=== PATIENT | female | born 1960 | race Caucasian/White ===

== ENCOUNTER 2023-01-20 15:54 | Observation (INO) | payer BC ==
[2023-01-20] MEDS ORDERED: Sodium Chloride 0.9% 10 ML Syringe FLUSH PRN (16:04)
[2023-01-20 16:35] LABS: CHLORIDE,CL 100 mmol/L (98-107); SODIUM,NA 135 mmol/L (136-145)
[2023-01-20 16:36] LABS: ESTIMATED GFR 104 mL/min (>=60)
[2023-01-20] MEDS ORDERED: Aspirin 81 MG Tab.Chew PO ONE (16:46)
[2023-01-20] MEDS ORDERED: Labetalol 100 MG/20 ML MDV IVPUSH ONE (16:48)
[2023-01-20 16:51] LABS: PTT,PARTIAL THROMBOPLSTIN TIME 25.6 SEC (22.8-31.4)
[2023-01-20 17:19] LABS: HEMOGLOBIN A1C 7.3 % (4.3-5.7)
[2023-01-20] MEDS ORDERED: Ibuprofen 600 MG Tab PO PRN (19:48)
[2023-01-21 07:58] LABS: ANION GAP 11.1 mmol/L (5-15)
[2023-01-21] MEDS ORDERED: Aspirin 81 MG Tab.EC PO SCH (08:00)
== END 2023-01-21 11:45 | disposition home or self-care (01) ==
LOC: KA.ED 15:54 → KA.MS 17:18
PROVIDERS: ADMIT Physician Assistant Medical; ATTEND Nurse Practitioner Family
DX: I16.0 Hypertensive urgency (principal); R20.0 Anesthesia of skin; E11.65 Type 2 diabetes mellitus with hyperglycemia; E66.9 Obesity, unspecified; E78.1 Pure hyperglyceridemia; E55.9 Vitamin D deficiency, unspecified; R91.1 Solitary pulmonary nodule; R94.31 Abnormal electrocardiogram [ECG] [EKG]; N95.0 Postmenopausal bleeding; E78.00 Pure hypercholesterolemia, unspecified; Z87.891 Personal history of nicotine dependence; Z79.899 Other long term (current) drug therapy; Z79.82 Long term (current) use of aspirin; Z68.37 Body mass index [BMI] 37.0-37.9, adult
CPT/HCPCS: 36415; 70450; 71045; 80048; 80053; 83036; 84443; 84484; 85025; 85610; 85730; 93010; 96374; 99223; 99285-25; A9270-GY; G0378; J3490

== ENCOUNTER 2023-03-14 10:56 | Emergency (ER) | payer BC ==
[2023-03-14] MEDS ORDERED: Sodium Chloride 0.9% 1,000 ML IV ONE (10:58)
[2023-03-14] MEDS ORDERED: Sodium Chloride 0.9% 10 ML Syringe FLUSH PRN (10:58)
[2023-03-14] MEDS ORDERED: Ondansetron 4 MG/2 ML SDV IVPUSH ONE ×2 (11:09→11:58)
[2023-03-14] MEDS ORDERED: Ondansetron 4 MG/2 ML SDV ONE (11:10)
[2023-03-14 11:13] LABS: BASOPHILS ABSOLUTE AUTO 0.02 10^3/uL (0.00-0.10); BASOPHILS PERCENT AUTO 0.1 % (0.0-1.0); HEMATOCRIT 40.7 % (37.0-47.0); HEMOGLOBIN 13.8 g/dL (12.0-16.0); IMMATURE GRAN ABSOLUTE AUTO 0.08 10^3/uL (0.00-0.50); IMMATURE GRAN PERCENT AUTO 0.4 % (0.0-5.0); LYMPHOCYTES ABSOLUTE AUTO 0.69 10^3/uL (1.00-4.00); LYMPHOCYTES PERCENT AUTO 3.2 % (20.0-40.0); MEAN CORPUSCULAR HEMOGLOBIN 29.7 pg (27.0-31.0); MEAN CORPUSCULAR HGB CONC 33.9 g/dL (32.0-36.0); MEAN CORPUSCULAR VOLUME 87.5 fL (82.0-92.0); MEAN PLATELET VOLUME 11.6 fL (7.4-10.4); MONOCYTES ABSOLUTE AUTO 0.93 10^3/uL (0.10-0.80); MONOCYTES PERCENT AUTO 4.3 % (2.0-8.0); NEUTROPHILS ABSOLUTE AUTO 20.06 10^3/uL (2.50-7.00); PLATELET COUNT,PLT 199 10^3/uL (150-400); RED BLOOD CELL COUNT 4.65 10^6/uL (3.80-5.50); RED CELL DISTRIBUTION WIDTH 12.7 % (11.5-14.5); WHITE BLOOD CELL COUNT,WBC 21.78 10^3/uL (5.00-10.00)
[2023-03-14 11:25] LABS: ALANINE AMINOTRANSFERASE,ALT 21 U/L (14-63); ALBUMIN 3.89 g/dL (3.40-5.00); ALKALINE PHOSPHATASE 111 U/L (46-116); ANION GAP 13.9 mmol/L (5-15); ASPARTATE AMNIOTRANSFERASE,AST 18 U/L (15-37); BILIRUBIN TOTAL 0.5 mg/dL (0.2-1.0); BLOOD UREA NITROGEN,BUN 14 mg/dL (7-18); CALCIUM 8.9 mg/dL (8.7-10.3); CARBON DIOXIDE,CO2 26.6 mmol/L (21.0-32.0); CHLORIDE,CL 101 mmol/L (98-107); CREATININE 0.54 mg/dL (0.51-1.17); ESTIMATED GFR 103 mL/min (>=60); GLUCOSE RANDOM 281 mg/dL (70-140); LIPASE 73 U/L (73-393); POTASSIUM,K 3.5 mmol/L (3.5-5.1); PROTEIN TOTAL,TP 8.1 g/dL (6.4-8.2); SODIUM,NA 138 mmol/L (136-145)
[2023-03-14] MEDS ORDERED: Iopamidol 755 Mg/ML 100 ML Bottle IV ONE (11:56)
[2023-03-14] MEDS ORDERED: Famotidine 20 MG/2 ML SDV IVPUSH ONE (11:58)
[2023-03-14] MEDS ORDERED: Sodium Chloride 0.9% 50 ML IV SCH (12:00)
[2023-03-14 12:08] LABS: APPEARANCE,URINE CLEAR (CLEAR); BILIRUBIN,URINE NEGATIVE (NEGATIVE); COLOR,URINE YELLOW (YELLOW); GLUCOSE,URINE >=1000 mg/dL (NEGATIVE); KETONES,URINE 40 mg/dL (NEGATIVE); LEUKOCYTE ESTERASE,URINE NEGATIVE (NEGATIVE); NITRITE,URINE NEGATIVE (NEGATIVE); OCCULT BLOOD,URINE TRACE-INTACT (NEGATIVE); PH,URINE 7.5 (5.0-9.0); PROTEIN,URINE 30 mg/dL (NEGATIVE)
[2023-03-14 12:10] LABS: BACTERIA,URINE OCCASIONAL /HPF (NONE TO FEW); EPITHELIAL CELLS,URINE FEW /LPF; RBC,URINE 0-5 /HPF (0-5); WBC,URINE 0-5 /HPF (0-5)
[2023-03-14 12:12] LABS: AMORPHOUS SEDIMENT,URINE FEW /HPF (0/HPF)
[2023-03-14] MEDS ORDERED: Ketorolac 30 MG/ML SDV IVPUSH ONE (12:39)
[2023-03-14] MEDS ORDERED: Sodium Chloride 0.9% 1,000 ML IV SCH (13:15)
[2023-03-14] MEDS ORDERED: Morphine 4 MG/ML Syringe ONE (13:34)
== END 2023-03-14 13:50 ==
LOC: KA.ED 10:56
DX: K81.0 Acute cholecystitis (principal); D72.829 Elevated white blood cell count, unspecified; E66.9 Obesity, unspecified; Z68.42 Body mass index [BMI] 45.0-49.9, adult; Z88.1 Allergy status to other antibiotic agents; Z88.5 Allergy status to narcotic agent; Z91.012 Allergy to eggs; Z91.013 Allergy to seafood; Z91.041 Radiographic dye allergy status; Z91.040 Latex allergy status; Z91.048 Other nonmedicinal substance allergy status; Z79.82 Long term (current) use of aspirin; Z98.890 Other specified postprocedural states
CPT/HCPCS: 36415; 74177; 80053; 81001; 83690; 84484; 85025; 93005; 96361; 96374; 96375; 96376; 99285-25; J1885; J2405; J3490; J7030; Q9967